=== PATIENT | female | born 1990 | race African-American/Black ===

== ENCOUNTER 2017-02-07 12:36 | Emergency (ER) | payer SELFPAY ==
[2017-02-07 12:40] VITALS: TEMP 98
--- NOTE | 2017-02-07 13:30 | C.PDOC ---
History Of Present Illness 26 y/o female c/o pain to left axillary area x days that is getting worse, making it difficult to move her arm due to pain. pt denies fever, chills, night sweats, recent illness, cough, pain or discomfort in left breast. pt does not shave in axillary areas. Time Seen by Provider: 02/07/17 12:51 Chief Complaint (Nursing): Abnormal Skin Integrity Past Medical History Reviewed: Historical Data, Nursing Documentation, Vital Signs Vital Signs: Last Vital Signs Temp 98 F 02/07/17 12:38 Pulse 85 02/07/17 15:08 Resp 14 02/07/17 15:08 BP 107/72 02/07/17 15:06 Pulse Ox 100 02/07/17 15:20 - Medical History PMH: No Chronic Diseases Surgical History: No Surg Hx Family History: States: Unknown Family Hx - Social History Hx Tobacco Use: No Hx Alcohol Use: No Hx Substance Use: No - Immunization History Hx Tetanus Toxoid Vaccination: No Hx Influenza Vaccination: No Hx Pneumococcal Vaccination: No Review Of Systems Constitutional: Negative for: Fever, Chills ENT: Negative for: Throat Pain Cardiovascular: Negative for: Chest Pain Respiratory: Negative for: Cough, Shortness of Breath Gastrointestinal: Negative for: Nausea, Vomiting, Abdominal Pain Musculoskeletal: Positive for: Shoulder Pain. Negative for: Neck Pain Skin: Negative for: Rash Neurological: Negative for: Weakness, Numbness Physical Exam - Physical Exam Appears: Non-toxic, Other (uncomfortable appearing, thin female) Skin: Normal Color, Warm, Dry Head: Atraumatic, Normacephalic Eye(s): bilateral: Normal Inspection Oral Mucosa: Moist Tongue: Normal Appearing Throat: Normal Neck: Normal ROM, No Midline Cervical Tenderness Lymphatic: Axilla Node Tenderness (left axillary node firm and exquisitely tender with mild swelling to axillary area, no erythema, warmth or discharge noted. no supraclavicular nodes palapted. ), Other (few small right posterior cervical non tender nodes) Chest: Symmetrical, No Deformity, No Tenderness, Other (left breast- no mass palpated, no erythema, no swelling or warmth, no nipple discharge) Cardiovascular: Rhythm Regular, No Murmur Respiratory: Normal Breath Sounds, No Rales, No Rhonchi, No Wheezing Gastrointestinal/Abdominal: Bowel Sounds, Soft, No Tenderness Neurological/Psych: Oriented x3, Normal Speech, Normal Cognition, Normal Motor ED Course And Treatment - Laboratory Results Result Diagrams: 02/07/17 13:28 02/07/17 13:28 O2 Sat by Pulse Oximetry: 100 Medical Decision Making Medical Decision Makin26 y/o female with tender firm left auxiliary lymph node. will get labs., treat for pain and re-eval. 305 pm pt feeling better, decreased pain. pt found to be anemic, will start on iron and colace, advised to increase food consumption of iron containing foods. will give course of antibiotics and have pt follow up in clinic with possible need for us of left axilla. Disposition Counseled Patient/Family Regarding: Diagnosis, Need For Followup, Rx Given - Disposition Referrals: Clinic,Med Surg [Primary Care Provider] - [facility] [Outside] [facility] [Outside] Disposition: HOME/ ROUTINE Disposition Time: 15:08 Condition: GOOD Additional Instructions: Follow up in Medical clinic in the next few days for further evaluation of left axillary pain, may need a sonogram. Also for further evaluation of anemia; Return to ER for any worsening symptoms. Prescriptions: Docusate [Colace] 100 mg PO TID #90 cap Ferrous Sulfate [Feosol] 325 mg PO TID #90 tab Cephalexin [cephalexin] 500 mg PO QID #28 cap Instructions: Lymphadenopathy (ED) Forms: General Discharge Instructions - Clinical Impression Clinical Impression: Lymphadenopathy, axillary
[2017-02-07 13:37] LABS: BASO % 0.5 % (0.0-2.0); EOS # 0.2 K/uL (0.0-0.7); EOS % 2.6 % (0.0-4.0); HEMATOCRIT 29.9 % (34.0-47.0); LYMPH # 2.3 K/uL (1.0-4.3); MEAN CELL VOLUME 65.2 fL (81.0-99.0); MEAN CORPUSCULAR HEMOGLOBIN 19.7 pg (27.0-31.0); MEAN CORPUSCULAR HGB CONC 30.2 g/dL (33.0-37.0); MEAN PLATELET VOLUME 8.9 fL (7.2-11.7); MONO # 0.6 K/uL (0.0-0.8); MONO % 9.1 % (0.0-10.0); RED CELL DISTRIBUTION WIDTH 18.5 % (11.5-14.5); WHITE BLOOD COUNT 7.1 K/uL (4.8-10.8)
[2017-02-07 13:47] LABS: CHLORIDE 103 mmol/L (98-107)
[2017-02-07 13:48] LABS: SODIUM 140 mmol/L (132-148)
[2017-02-07 13:51] LABS: ALB/GLOB RATIO 1.4 (1.0-2.1); ALKALINE PHOSPHATASE 41 U/L (38-126); ALT/SGPT 13 U/L (9-52); AST/SGOT 18 U/L (14-36); BILIRUBIN,TOTAL 0.4 mg/dL (0.2-1.3); BLOOD UREA NITROGEN 11 mg/dL (7-17); CARBON DIOXIDE 24 mmol/L (22-30); GFR AFRICAN-AMERICAN > 60; GLUCOSE,RANDOM 76 mg/dL (65-105); TOTAL PROTEIN 7.3 g/dL (6.3-8.3)
[2017-02-07 15:06] VITALS: BP 107/72
[2017-02-07 15:07] VITALS: O2SAT 100
[2017-02-07 15:09] VITALS: PULSE 85; RESP 14
== END 2017-02-07 15:49 | disposition home or self-care (01) ==
LOC: SUPCPDRO 12:36 → C.ER 12:36
DX: R59.1 Generalized enlarged lymph nodes (principal)
CPT/HCPCS: 80053; 85025; 96374; 99283; J1885